=== PATIENT | female | born 1970 | race Two or more races ===

== ENCOUNTER 2024-07-11 10:59 | Emergency (ER) | payer MEDICAID, SELFPAY ==
[2024-07-11 11:45] VITALS: BP 147/84; PULSE 69; RESP 20; TEMP 36.7; O2SAT 96; BMI 35.2
--- NOTE | 2024-07-11 11:48 | XR_ITS ---
Examination: CT brain head without contrast. 2-D sagittal coronal reconstructions Date and time of exam:July 21, 2024 1155 hours INDICATIONS: Patient fell yesterday with injury to the head, head pain neck pain CTDI: vol (mGy):48.6 DLP: (mGycm):918 Technique: Multiple CT axial sections of the brain have been obtained, 5 mm slice thickness. Contrast has not been administered. 2-D sagittal, coronal reconstructions have been obtained Low dose protocols were performed. One or more of the following dose reduction techniques were used; automated exposure control, adjustment of the mA and/or KV according to patient size, use of iterative reconstruction technique. Findings: No significant ventricular enlargement. Intra-axial or extra-axial hemorrhage density is not seen. No mass effect or midline shift Basal cisterns are not remarkable. Fourth ventricle is midline. Cranial vault intact. Impression: Negative for acute hemorrhage, mass effect or midline shift
--- NOTE | 2024-07-11 11:48 | XR_ITS ---
EXAMINATION: Ankle, left 3 views . Technique: Ankle AP, oblique, lateral 3 views Date and time of exam: July 11, 2024 at 1215 hours INDICATIONS: Injury to the ankle today, ankle pain. FINDINGS: No acute fracture No dislocation No foreign body IMPRESSION: No acute fracture
--- NOTE | 2024-07-11 11:48 | XR_ITS ---
Examination: Left elbow 2 views Technique one AP lateral left elbow 2 views Exam date and time: July 11, 2024 1221 hours INDICATIONS: Patient fell today with injury to the elbow, elbow pain. FINDINGS: No acute fracture No dislocation IMPRESSION: No acute fracture
--- NOTE | 2024-07-11 11:48 | XR_ITS ---
Examination: Wrist, left 3 views Technique: Wrist AP, oblique, lateral 3 views Date and time of exam: July 11, 2024 1213 hours INDICATIONS: Patient fell today with injury to the wrist, wrist pain FINDINGS: No fracture or dislocation No foreign body IMPRESSION: No fracture or dislocation
--- NOTE | 2024-07-11 11:48 | XR_ITS ---
Examination: Foot, left, 3 views Technique: AP, oblique, lateral views foot, 3 views Date and time of exam: July 11, 2024 1226 hours INDICATIONS: Patient fell today with injury to foot, foot pain FINDINGS: No acute fracture No dislocation No foreign body IMPRESSION: No acute fracture
--- NOTE | 2024-07-11 11:48 | XR_ITS ---
Examination: CT cervical spine without contrast 2-D sagittal reconstructions 2-D coronal reconstructions 3-D reconstructions. Exam date and time:08/11/2024 1155 hours INDICATIONS: Patient fell today with injury to the neck, neck pain CTDI:vol (mGy) 9.24 DLP: (mGycm) 202 Technique: Multiple 2 mm axial sections of the cervical spine have been obtained. The coronal and sagittal reconstructions have been obtained. 3-D reconstructions have been obtained. Low dose protocols were performed. One or more of the following dose reduction techniques were used; automated exposure control, adjustment of the mA and/or KV according to patient size, use of iterative reconstruction technique. Findings: Axial sections demonstrate intact base of the skull. C1 exhibit satisfactory relationship to the odontoid. No acute cervical vertebral body fracture seen. Alignment posterior spinous processes satisfactory. Impression: No acute cervical fracture.
--- NOTE | 2024-07-11 11:48 | XR_ITS ---
Examination: Hand, left 3 views Technique: Hand AP, oblique, lateral 3 views Date and time of exam: July 11, 2024 1213 hours INDICATIONS: Patient fell today with injury to the hand, hand pain. FINDINGS: Prominent osteopenia No acute fracture No dislocation IMPRESSION: No acute fracture
[2024-07-11] MEDS: DIPHTH,PERTUSS(ACELL),TET VAC 0.5 ML SYR- ADULT IMi (14:20)
[2024-07-11] MEDS: KETOROLAC INJ 30 MG/ML VIAL IM (14:21)
--- NOTE | 2024-07-11 17:56 | EDNOTE_ITS ---
<Statement entered by Catrachita Clement MD - 07/14/24 12:06> As co-signing physician, I was present and available for consult prn. I concur with the plan and care as documented by the midlevel provider. ED Fall Injury RME/HPI General Chief Complaint: Fall Stated Complaint: LEFT ANKLE, LEFT WRIST PAIN Time Seen by Provider: 07/11/24 11:48 Arrival date/time: 07/11/24 10:59 54-year-old female presents emergency department today with complaints of a fall patient reports left-sided arm pain and leg pain as well as head and neck pain Limitations: no limitations Related Data Previous Rx's ?Medication ?Instructions ?Recorded hydrocodone 5 mg-acetaminophen 325 1 tab PO BID PRN pa in #8 tabs 07/11/24 mg tablet ibuprofen 800 mg tablet 800 mg PO TID PRN pain #30 t abs 07/11/24 Allergies Allergy/AdvReac Type Severity Reaction Status Date / Time No Known Allergies Allergy Verified 10/10/22 10:42 Review of Systems Review of Systems Systems Reviewed: All systems reviewed, normal except as documented Constitutional Constitutional: Reports system reviewed and no additional complaints, except as documented, Denies fever(s) and Denies headache(s) Eyes Eyes: Reports system reviewed and no additional complaints, except as documented and Denies blurry vision ENT Ears, Nose, Mouth, and Throat: Reports system reviewed and no additional complaints, except as documented, Denies headache(s), Denies nasal congestion, Denies nasal discharge and Reports neck pain Cardiovascular Cardiovascular: Reports system reviewed and no additional complaints, except as documented, Denies chest pain and Denies dyspnea Respiratory Respiratory: Reports system reviewed and no additional complaints, except as documented, Denies chest congestion, Denies cough and Denies dyspnea Gastrointestinal Gastrointestinal: Reports system reviewed and no additional complaints, except as documented and Denies abdominal pain Musculoskeletal Musculoskeletal: Reports system reviewed and no additional complaints, except as documented, Reports abnormal gait, Reports arthralgias, Reports back pain, Denies deformity, Reports neck pain, Denies numbness, Reports stiffness and Denies tingling Integumentary/Breasts Skin/Breast: Reports system reviewed and no additional complaints, except as documented, Denies rash and Reports other (Abrasions left foot) Neurologic Neurologic: Reports system reviewed and no additional complaints, except as documented, Reports as per HPI, Reports abnormal gait, Denies headache(s), Denies numbness and Denies tingling Past Medical History Past Medical History CARDIAC: Negative Congestive Heart Failure RESPIRATORY: Negative Chronic Obstructive Pulmonary Disease (COPD) GENITOURINARY: Negative Renal Disease ENDOCRINE: Negative Diabetes Mellitus Type 1 or Diabetes Mellitus Type 2 PSYCHO/SOCIAL: Positive Anxiety Social History SMOKING STATUS: Never smoker ED Exam General Limitations: Present no limitations General appearance: Present alert and in no apparent distress Head Head exam: Present atraumatic, normocephalic and normal inspection Eye Eye exam: Present normal appearance, PERRL and EOMI; Absent conjunctival injection ENT ENT exam: Present normal exam, normal oropharynx and mucous membranes moist Neck Neck exam: Present normal inspection, full ROM, trachea midline and tenderness; Absent meningismus or lymphadenopathy Chest Chest inspection: Present normal inspection and symmetric chest wall rise; Absent tenderness Respiratory Respiratory exam: Present normal lung sounds bilaterally; Absent respiratory distress Cardiovascular Cardiovascular exam: Present regular rate, normal rhythm and normal heart sounds Abdominal Exam Abdominal exam: Present soft and normal bowel sounds; Absent distention, tenderness, guarding, rebound or rigidity Extremities Exam Extremities exam: Present normal inspection, full ROM, tenderness, normal capillary refill and joint swelling; Absent pedal edema or calf tenderness Back Exam Back exam: Present normal inspection and full ROM; Absent tenderness Neurological Exam Neurological exam: Present alert, oriented X3, CN II-XII intact, normal gait and reflexes normal; Absent motor sensory deficit Psychiatric Psychiatric exam: Present normal affect and normal mood Skin Skin exam: Present warm, dry, intact and normal color; Absent rash Course Quality Measures none Orders Category Date Time Status dawit wrap [Splint / Immobilizer] STAT Care 07/11/24 13:[address] cervical spine wo con Stat Exams 07/11/24 11:[address] head/brain wo con Stat Exams 07/11/24 11:48 Completed XR ankle comp LT min 3V Stat Exams 07/11/24 11:48 Completed XR elbow LT 2V Stat Exams 07/11/24 11:48 Completed XR foot comp LT min 3V Stat Exams 07/11/24 11:48 Completed XR hand comp LT min 3V Stat Exams 07/11/24 11:48 Completed XR wrist comp LT min 3V Stat Exams 07/11/24 11:48 Completed Ketorolac Inj [Toradol Inj] Med 07/11/24 13:51 Discontinued 30 mg IM X1 ONE Tet,Diphth,Pertuss(Acell)-Tdap [Boostrix Vacc] Med 07/11/24 13:51 Discontinued 0.5 ml IMI .ONCE ONE Vital Signs Vital signs: Vital Signs Temperature 98.1 F 07/11/24 11:45 Pulse Rate 69 07/11/24 11:45 Respiratory Rate 20 07/11/24 11:45 Blood Pressure 147/84 H 07/11/24 11:45 Pulse Oximetry (%) 96 07/11/24 11:45 Oxygen Delivery Method Room Air 07/11/24 11:45 O2 saturation 96% room air within normal limits Fall MDM Narrative MDM Narrative:: 54-year-old female presents emergency department today with complaints of a fall patient reports left-sided arm pain and leg pain as well as head and neck pain On exam patient does have swelling and abrasion to the left foot Head and neck appear to be atraumatic Imaging obtained no acute emergent findings noted Patient given pain medication tetanus updated Explained to the patient if symptoms persist she may need advanced imaging for further evaluation Patient discharged home in no distress to follow-up with primary care doctor in the next 24 to 48 hours and for any worsening symptoms to return to the ER immediately Patient data External records reviewed:: [facility] previous records Clinical information provided by:: patient Social determinants that could affect healthcare access:: none Patient has the following chronic illnesses:: See history How is presenting disease/condition affected by chronic disease/condition?: caused by Evaluation data The following diagnostics were reviewed and interpreted by me:: radiology exam(s) Lab and/or radiology exams considered but not ordered:: Radiology obtain Interpretation Summary: Reviewed by me Medications / Prescriptions Medications or Prescriptions considered but not ordered:: Given Medication administrations:: Medication Administration History Discontinued Medications Diphtheria/Tetanus/Acell Pertussis (Diphth,Pertuss(Acell),Tet Vac 0.5 Ml Syr- Adult) 0.5 ml IMi .ONCE ONE Stop: 07/11/24 13:52 Last Admin: 07/11/24 14:20 Dose: 0.5 ml Documented By: Ketorolac Tromethamine (Ketorolac Inj 30 Mg/Ml Vial) 30 mg IM X1 ONE Stop: 07/11/24 13:52 Last Admin: 07/11/24 14:21 Dose: 30 mg Documented By: Given Consultations Consultation(s) initiated? (list below): No Diagnosis Fall Differential Diagnosis: dislocation of shoulder region, concussion with loss of consciousness and concussion without loss of consciousness Most likely diagnosis given after review of the tests above:: Fall abrasion, hematoma Admission Indicated Admission indicated?: not indicated Admission Request Was there a request for admission?: No Disposition Plan Disposition Plan: Discharge Discharge Attestation Discharge Attestation: The patient and all family members were given an opportunity to ask questions and understood the discharge instructions. Discharge instructions specifically effects, indications for sooner follow up or return to the emergency department, and the expected course of current diagnosis. Patient condition: Stable Discharge Plan Plan Patient Disposition: HOME (Self Care) Disposition Comment: Stable Prescriptions/Referrals Prescriptions/Med Rec: New ibuprofen 800 mg tablet 800 mg PO TID PRN (Reason: pain) Qty: 30 0RF hydrocodone-acetaminophen 5-325 mg tablet 1 tab PO BID MDD 10 PRN (Reason: pain) Qty: 8 0RF Referrals: Sergio([facility])Jeff NP [Primary Care Provider] - 07/14/24 Problem List Clinical Impression: Left ankle sprain, Contusion of hand, left, CHI (closed head injury) Patient/Caregiver Discharge Instructions Education Materials: Bruises (Contusions) Additional Instructions: Please follow up with your primary care doctor in the next 24-48hrs for any worsening symptoms return here immediately Print Language: Pakistani Stand Alone Forms: Zeina Award Info., Work/School Release, Patient Portal Info Letter TREE/MARYLIN Supervising Physician RED Supervising Physician: Dr CLEMENT
== END 2024-07-11 14:35 | disposition home or self-care (01) ==
PROVIDERS: Emergency Provider Emergency Medicine; PCP Nurse Practitioner Family
DX: S93.402A Sprain of unspecified ligament of left ankle, initial encounter (principal); S60.222A Contusion of left hand, initial encounter; S90.812A Abrasion, left foot, initial encounter; S09.90XA Unspecified injury of head, initial encounter; S19.9XXA Unspecified injury of neck, initial encounter; S59.902A Unspecified injury of left elbow, initial encounter; S69.92XA Unspecified injury of left wrist, hand and finger(s), initial encounter; W19.XXXA Unspecified fall, initial encounter; Z23 Encounter for immunization
CPT/HCPCS: 29515; 70450; 72125; 73070; 73110; 73130; 73610; 73630; 90471; 90715; 99283; J1885

== ENCOUNTER → 2024-12-05 | Outpatient (CLI) | payer MEDICAID, SELFPAY ==
--- NOTE | 2024-12-05 08:00 | XR_ITS ---
Examination: Abdomen sonogram, complete Date and time of exam: December 05, 2024, 0806 hours INDICATIONS: Elevated liver enzymes on laboratory examination one month ago, abdominal pain beginning 2 days ago. Technique: Multiple real-time grayscale transabdominal sonographic images of the abdomen have been obtained. Findings: Absent gallbladder Common bile duct 0.4 cm Pancreatic head 2.1 cm Aorta not enlarged. Liver 20 cm fatty infiltration no focal liver lesions Normal hepatopedal portal venous flow Patent IVC Right kidney 10.7 cm cortex 1.0 cm 38 mm lower pole cyst Left kidney 9.5 cm cortex 1.4 cm Mild bilateral renal parenchymal scar formation Spleen 8.1 cm IMPRESSION: Absent gallbladder No common bile duct stones Moderate hepatomegaly fatty infiltration no focal liver lesions. Mild bilateral renal 0.1 scar formation, no hydronephrosis
== END | disposition home or self-care (01) ==
LOC: CDIM 07:53
PROVIDERS: Referring Provider Nurse Practitioner Family; Visit Provider Nurse Practitioner Family
DX: K76.0 Fatty (change of) liver, not elsewhere classified (principal); N28.89 Other specified disorders of kidney and ureter; Z90.49 Acquired absence of other specified parts of digestive tract
CPT/HCPCS: 76700

== ENCOUNTER 2025-01-07 10:22 | Emergency (ER) | payer MEDICAID, SELFPAY ==
[2025-01-07 10:23] VITALS: BMI 34.0
[2025-01-07 11:25] VITALS: BP 152/69; PULSE 50; RESP 16; TEMP 36.6; O2SAT 97
--- NOTE | 2025-01-07 11:32 | XR_ITS ---
Examination: Abdomen sonogram, Limited Date and time of exam: January 07, 2025 1201 hours INDICATIONS: Right upper abdominal pain beginning 3 weeks ago Technique: Real-time marcial scale transabdominal sonographic images of the upper abdomen obtained. Findings: Absent gallbladder. Normal common bile duct 0.4 cm. Pancreatic head 2.5 cm Liver 20.2 cm fatty infiltration no focal liver lesions Normal hepatopedal portal venous flow Patent IVC IMPRESSION: Hepatomegaly 20.2 cm with fatty infiltration, no focal liver lesions
--- NOTE | 2025-01-07 11:33 | PD.EDRME ---
Rapid Medical Screening Exam RME Arrival date/time: 01/07/25 10:22 54-year-old female presents to the emergency department for complaint of upper abdominal pain, nausea, back pain, headaches Chief Complaint: General Adult/Misc Complain Time Seen by Provider: 01/07/25 11:22 Vital signs: Vital Signs Temperature 97.8 F 01/07/25 11:25 Pulse Rate 50 L 01/07/25 11:25 Respiratory Rate 16 01/07/25 11:25 Blood Pressure 152/69 H 01/07/25 11:25 Pulse Oximetry (%) 97 01/07/25 11:25 Oxygen Delivery Method Room Air 01/07/25 11:25
--- NOTE | 2025-01-07 11:34 | XR_ITS ---
Examination: CT abdomen and pelvis without contrast. Coronal 3-D reconstructions. Sagittal 2-D reconstructions. Date and time of exam:January 07, 2025 1408 hours INDICATIONS: Onset right upper abdominal pain beginning 4 days ago CTDI: vol (mGy): 11.9 DLP: (mGycm): 675 Technique: Axial images of the abdomen have been obtained, 3 mm slice thickness Intravenous contrast material has not been administered. Low dose protocols were performed. One or more of the following dose reduction techniques were used; automated exposure control, adjustment of the mA and/or KV according to patient size, use of iterative reconstruction technique. Findings: Hepatomegaly 20 cm diffuse fatty infiltration throughout the liver Absent gallbladder No extra hepatic biliary tract dilatation Spleen is not enlarged. No pancreatic or adrenal mass. 3.5 cm anterior right renal cyst with irregular margins No renal or ureteral calculi, no hydronephrosis Aorta normal size 6 mm fat-containing umbilical hernia. Appendix not visualized No bowel obstruction No uterine or adnexal mass Urinary bladder intact IMPRESSION: Hepatomegaly 20 cm diffuse fatty infiltration throughout the liver. Absent gallbladder, no biliary tract dilatation No renal or ureteral calculi, hydronephrosis No bowel obstruction
[2025-01-07 11:58] LABS: Collection Type, Urine Clean Catch
[2025-01-07 12:11] LABS: Bacteria,Urine 1+; Bilirubin,Urine Negative (Negative); Blood,Urine 2+ (Negative); Color,Urine Yellow (Lt Yel-Yel); Culture Indicated,Urine Contaminated; Glucose, Urine Negative (Negative); Ketones,Urine Negative (Negative); Leukocyte Esterase,Urine Positive (Negative); Nitrite,Urine Negative (Negative); PH,Urine 6.0 (5.0-7.0); Protein,Urine Negative (Neg - Trace); RBC,Urine 11 /hpf (0-3); Specific Gravity,Urine 1.021 (1.001-1.035); Squamous Epithelial Cell,Urine 16 /hpf (0-5); Urobilinogen,Urine Negative mg/dL (0.0-1.0); WBC,Urine 36 /hpf (0-5)
[2025-01-07 12:19] LABS: Basophils # (Auto) 0.1 Thou/mm3 (0.0-0.2); Basophils % (Auto) 1 % (0-2.5); Eosinophils # (Auto) 0.2 Thou/mm3 (0.0-0.5); Eosinophils % (Auto) 2 % (0-10); Hematocrit 43.6 % (36.0-46.0); Hemoglobin 14.9 g/dL (12.0-16.0); Immature Granulocytes Auto 0.04 Thou/mm3 (0.00-0.00); Lymphocytes # (Auto) 2.4 Thou/mm3 (1.0-4.8); Lymphocytes % (Auto) 29 % (10-50); Mean Corpuscular HGB Conc 34.2 g/dl (31.0-37.0); Mean Corpuscular Hemoglobin 32.8 pg (25.0-35.0); Mean Corpuscular Volume 96 fL (80-100); Monocytes # (Auto) 0.8 Thou/mm3 (0.0-0.8); Monocytes % (Auto) 9 % (0-12); Neutrophils # (Auto) 4.9 Thou/mm3 (1.8-7.7); Neutrophils % (Auto) 59 % (37-80); Nucleated Red Blood Cell # 0.00 Thou/mm3 (0.00-0.00); Nucleated Red Blood Cell % 0 /100 WBC (0); Platelet Count 351 Thou/mm3 (140-440); RDW Standard Deviation 49.1 fL (36.4-46.3); Red Blood Count 4.54 Miln/mm3 (4.00-5.20); White Blood Count 8.3 Thou/mm3 (3.6-11.0)
[2025-01-07 12:32] LABS: INR 1.0 (0.9-1.3); Partial Thromboplastin Time 25.2 Seconds (22.0-36.0); Prothrombin Time 11.3 Seconds (9.0-12.2)
[2025-01-07 12:37] LABS: Clarity,Urine Hazy (Clear/Hazy)
[2025-01-07 12:49] LABS: Alanine Aminotransferase 139 U/L (10-49); Albumin, Serum 4.1 gm/dL (3.5-5.0); Albumin/Globulin Ratio 1.6 (1.2-2.2); Alkaline Phosphatase 87 U/L (46-116); Anion Gap 8 (7-16); Aspartate Amino Transferase 90 U/L (0-34); BUN/Creatinine Ratio 10 Ratio (12-20); Bilirubin,Total 0.4 mg/dL (0.3-1.2); Blood Urea Nitrogen 9 mg/dL (9-23); Calcium 9.7 mg/dL (8.3-10.6); Calcium (Corrected) 9.7 mg/dL (8.5-10.1); Carbon Dioxide 28.3 mMol/L (20.0-31.0); Chloride 108 mMol/L (98-107); Creatinine (Component) 0.9 mg/dL (0.6-1.3); Estimated Creatinine Clearance 75.7 mL/min (>60); Globulin 2.5 gm/dL (2.3-3.5); Glucose 62 mg/dL (74-106); Lipase 29 U/L (12-53); Osmolality,Calculated 283 (275-295); Potassium 4.1 mMol/L (3.4-5.1); Sodium 144 mMol/L (136-145); Total Protein 6.6 gm/dL (5.7-8.2); Troponin I < 0.002 ng/mL (0.0-0.045); eGFR > 60 See Note
--- NOTE | 2025-01-07 15:24 | EDNOTE_ITS ---
<Statement entered by Catrachita Clement MD - 01/17/25 11:10> As co-signing physician, I was present and available for consult prn. I concur with the plan and care as documented by the midlevel provider. ED General RME/HPI General Chief complaint: General Adult/Misc Complain Stated complaint: BACK, ABD, HEAD, LEG PAIN Time Seen by Provider: 01/07/25 11:22 Arrival date/time: 01/07/25 10:22 RME / HPI RME / HPI narrative: 54-year-old female presents to the emergency department for complaint of upper abdominal pain, nausea, back pain, headaches. This been ongoing for several days. Severity of symptoms mild. It comes and goes. Denies any fever denies any other complaints. Patient told me that she was advised regarding fatty liver. Related Data Previous Rx's ?Medication ?Instructions ?Recorded hydrocodone 5 mg-acetaminophen 325 1 tab PO BID PRN pa in #8 tabs 07/11/24 mg tablet ibuprofen 800 mg tablet 800 mg PO TID PRN pain #30 t abs 07/11/24 Allergies Allergy/AdvReac Type Severity Reaction Status Date / Time No Known Allergies Allergy Verified 01/07/25 10:26 Review of Systems Review of Systems Narrative Review of Systems: Review of system reviewed and within normal limits except mentioned in HPI ED Exam Narrative Physical exam: VITAL SIGNS: Reviewed. GENERAL APPEARANCE: Alert and interactive, follows commands, no acute distress, I was not able to examine her since patient left in the emergency room after I asked her questions and plan of care. Course Quality Measures none Orders Category Date Time Status CT abdomen pelvis wo con Stat Exams 01/07/25 11:34 Completed US gall bladder Stat Exams 01/07/25 11:32 Completed CBC Stat Lab 01/07/25 11:54 Completed Comprehensive Metabolic Panel Stat Lab 01/07/25 11:54 Completed Lipase Stat Lab 01/07/25 11:54 Completed PT [Prothrombin Time with INR] Stat Lab 01/07/25 11:54 Completed PTT [Partial Thromboplastin Time] Stat Lab 01/07/25 11:54 Completed Troponin I Stat Lab 01/07/25 11:54 Completed UA, C/S IF [Urinalysis, C/S if Indicated] Stat Lab 01/07/25 11:43 Completed Vital Signs Vital signs: Vital Signs Temperature 97.8 F 01/07/25 11:25 Pulse Rate 50 L 01/07/25 11:25 Respiratory Rate 16 01/07/25 11:25 Blood Pressure 152/69 H 01/07/25 11:25 Pulse Oximetry (%) 97 01/07/25 11:25 Oxygen Delivery Method Room Air 01/07/25 11:25 Discharge Plan Plan Patient Disposition: HOME (Self Care) Discharge Disposition comment: Stable Prescriptions/Referrals Prescriptions/Med Rec: No Action ibuprofen 800 mg tablet 800 mg PO TID PRN (Reason: pain) Qty: 30 0RF hydrocodone-acetaminophen 5-325 mg tablet 1 tab PO BID MDD 10 PRN (Reason: pain) Qty: 8 0RF Referrals: Little Martinez FNP [Primary Care Provider] - In 1 week Problem List Clinical Impression: Right upper quadrant pain, Fatty liver, Renal cyst Patient/Caregiver Discharge Instructions Discharge Activity: activity as tolerated Education Materials: Nonalcoholic Fatty Liver ..., How Your Kidneys Work Additional Instructions: Thank you for the opportunity for serving you today. You are stable for discharged . You are advised to: Follow-up with your PCP in 1 to 2 days and ask for referral to GI specialist regarding your fatty liver and kidney specialist regarding your incidental finding of renal cyst Return to ED for worsening of symptoms Print Language: Slovenian Stand Alone Forms: Zeina Award Info., Patient Portal Info Letter RED Supervising Physician RED Supervising Physician: MD Keri [facility] Narrative [facility] hospital course: 54-year-old female presents to the emergency department for complaint of upper abdominal pain, nausea, back pain, headaches. This been ongoing for several days. Severity of symptoms mild. It comes and goes. Denies any fever denies any other complaints. Patient told me that she was advised regarding fatty liver. Patient's laboratory workup is significant for slight elevated AST of 90 ALT of 139. Total bili is normal. Urinalysis is contaminated. CT scan of the abdomen and pelvis showed Hepatomegaly 20 cm diffuse fatty infiltration throughout the liver. Absent gallbladder, no biliary tract dilatation No renal or ureteral calculi, hydronephrosis No bowel obstruction Ultrasound of the gallbladder showed Hepatomegaly 20.2 cm with fatty infiltration, no focal liver lesions Results discussed with the patient. Advised her to follow-up closely with PCP regarding hepatomegaly and incidental finding of a renal cyst. Patient agrees with the plan.
== END 2025-01-07 15:33 | disposition home or self-care (01) ==
PROVIDERS: Nurse Practitioner Primary Care; Emergency Provider Emergency Medicine; PCP Nurse Practitioner Family
DX: K76.0 Fatty (change of) liver, not elsewhere classified (principal); N28.1 Cyst of kidney, acquired
CPT/HCPCS: 36415; 74176; 76705; 80053; 81001; 83690; 84484; 85025; 85610; 85730; 87400; 87811; 99283